=== PATIENT | female | born 1965 | race Caucasian/White ===

== ENCOUNTER 2016-11-20 10:24 | Day surgery (SDC) | payer OTHER ==
[~2016-11-20] VITALS: Ht 160 cm; Wt 70.2 kg
[~2016-11-20 10:24] MED LIST: CLARITIN-D 21 TABLET PO; PRILOSEC OTC20 MG PO
[2016-11-20 10:59] VITALS: BP 126/76
[2016-11-20 14:16] VITALS: BP 123/69
[2016-11-20 15:10] VITALS: BP 125/56
== END 2016-11-20 15:21 | disposition home or self-care (01) ==
LOC: SDC 10:24
PROC: 0HBT0ZZ Excision of Right Breast, Open Approach (ICD-10-PCS; principal; 2016-11-20)
DX: D05.11 Intraductal carcinoma in situ of right breast (principal); Z88.0 Allergy status to penicillin; K21.9 Gastro-esophageal reflux disease without esophagitis
CPT/HCPCS: 88305; J1100; J2175; J2250; J2405; J3010; S0020